=== PATIENT | male | born 1970 | race Caucasian/White ===

== ENCOUNTER 2025-02-10 08:18 | Day surgery (SDC) | payer OTHER, SELFPAY ==
[2025-02-10 08:48] VITALS: BMI 26.3
--- NOTE | 2025-02-10 11:03 | ITS.CL.CARDI ---
[employer] - Cardioversion
Cardioversion
Procedure Report:
Procedure: ALYSON-guided electrical cardioversion
Pre-operative diagnosis: Persistent atrial fibrillation
Post-operative diagnosis: Persistent atrial fibrillation status post DC cardioversion to sinus rhythm
Anesthesia: MAC
Attending Physician: Davey Wilkinson MD
Procedure Description: The patient was brought to the electrophysiology laboratory in the fasting state. Informed consent was obtained from the patient prior to the start of the procedure. Adherence to anticoagulation was confirmed. Electrodes were
placed on the patient and connected to an external defibrillator. Monitoring of blood pressure, ECG tracings, and pulse oximetry was initiated. The pads were applied to the patient in the anterior and posterior positions. The patient was sedated by
the anesthesiologist. A ALYSON (reported separately) was performed prior to the cardioversion. No left atrial or left atrial appendage thrombus was seen. After the ALYSON probe was removed, a 200 joule biphasic synchronized shock was delivered to the
patient under MAC anesthesia. Sinus rhythm was successfully restored. The patient recovered uneventfully from MAC anesthesia. There were no immediate post-procedure complications. The patient left the lab in good condition. The attending physician
was present throughout the entire procedure.
Impression: Successful ALYSON-guided direct current cardioversion with latter day of sinus rhythm after one 200 joule biphasic synchronized shock.
== END 2025-02-10 11:44 | disposition home or self-care (01) ==
LOC: CATH 08:18
PROVIDERS: ATTENDING PHYSICIAN Internal Medicine Cardiovascular Disease; FAMILY PHYSICIAN Internal Medicine; OTHER PHYSICIAN Internal Medicine Cardiovascular Disease
DX: I48.19 Other persistent atrial fibrillation (principal); I08.1 Rheumatic disorders of both mitral and tricuspid valves; Z79.01 Long term (current) use of anticoagulants; Z79.899 Other long term (current) drug therapy
CPT/HCPCS: 93312; 93320; 93325; 92960; 93005

== ENCOUNTER → 2025-04-23 14:19 | Outpatient (REF) | payer OTHER, SELFPAY | LOC: DHSLP 14:19 | PROVIDERS: ATTENDING PHYSICIAN Nurse Practitioner; FAMILY PHYSICIAN Internal Medicine | DX: G47.33 Obstructive sleep apnea (adult) (pediatric) (principal); R09.02 Hypoxemia | CPT/HCPCS: 95800 ==

== ENCOUNTER 2025-04-28 10:52 | Day surgery (SDC) | payer OTHER, SELFPAY ==
[2025-04-17 13:22] LABS: Hematocrit 44.1 % (39.0-52.0); Hemoglobin 15.0 g/dL (13.0-18.0); Mean Corp Hgb Conc. 34.0 g/dL (33.0-37.0); Mean Corpuscular Volume 86.3 fL (80.0-94.0); Nucleated Red Blood Cells % 0 % (-); Platelet Count 242 10^3/uL (130-400); Red Cell Dist. Width 13.0 % (11.5-14.5)
[2025-04-17 13:32] LABS: INR 1.05; PT 14.0 Sec (11.4-14.6)
[2025-04-17 13:49] LABS: ALT (SGPT) 23 U/L (0-50); AST (SGOT) 19 U/L (17-59); Albumin 4.3 g/dl (3.5-5.0); Alkaline Phosphatase 54 U/L (38-126); Blood Urea Nitrogen 19 mg/dl (9-20); Calcium 9.2 mg/dl (8.4-10.2); Carbon Dioxide 26 mmol/L (22-30); Chloride 108 mmol/L (98-107); Glucose 85 mg/dl (70-99); Magnesium 2.0 mg/dl (1.6-2.3); Potassium 4.6 mmol/L (3.5-5.1); Sodium 139 mmol/L (135-145); Total Protein 7.2 g/dl (6.3-8.2); eGFR > 60.00
[2025-04-20 09:48] VITALS: BMI 27.6
--- NOTE | 2025-04-20 15:18 | W.PN.UPDATE ---
Update Note
Progress Note Update
Chest CT 04/17/25:
1.8 cm nodule in the left lobe of the thyroid gland. Recommend a follow-up thyroid ultrasound.
--Dr Maximilian Olmedo and patient made aware
[2025-04-28] VITALS (14 sets, daily range): BP systolic 98–115; BP diastolic 62–84
[2025-04-28 13:25] LABS: ACT-LR - POC 256 Seconds (116-155)
[2025-04-28 13:49] LABS: ACT-LR - POC 297 Seconds (116-155)
--- NOTE | 2025-04-28 13:56 | ITS.CL.ABL ---
Insurance Healthcare Consultant - Ablation
Ablation
Procedure Report:
ELECTROPHYSIOLOGY ABLATION STUDY
DATE:: April 28, 2025�����������������������������REFERRING: Dr. Samuel Muhammad
INDICATION: Persistent supraventricular tachycardia in the form of atrial fibrillation.��As above
HISTORY: See H and P.��Also noted to have a thyroid nodule 1.8 cm discussed with patient he will have follow-up with his primary care physician
ANTIARRHYTHMIC DRUG: Metoprolol
PRE-PROCEDURE ALYSON: No atrial thrombus
PRESENTING RHYTHM: Atrial fibrillation
'TIME-OUT':��called and confirmed.
SEDATION/ANESTHESIA:��provided via the anesthesia department using general anesthesia (LMA).
INTRAVENOUS/ARTERIAL ACCESS:
Right femoral venous - 8Fr
Left femoral venous - 8 Fr, 6 Fr
Nhmdac-ta-[id number] suture bilaterally
Ultrasound guidance for bilateral femoral vein access was utilized by me to obtain access with demonstration of normal anatomy
CHADS-VASC Score:
HAS-Bled Score
PROCEDURE:
1.��A decapolar CS catheter was placed within the CS for mapping and pacing.��This was also used as the reference catheter for the 3-D map.
2. The intracardiac ultrasound catheter was positioned in the RA to identify the FO for targeting of transseptal puncture, assist��in identification of the pulmonary vein ostia, monitoring pre and post ablation pulmonary vein flow velocities,
monitoring for 'bubble' formation during RF application as a sign of thermal injury,��and to monitor for pericardial effusion during mapping and ablation procedure.���Left atrial size, LV ejection fraction, and pulmonary vein flows were monitored
pre and post ablation procedure. The other valves were inspected and found to be free of significant regurgitation or stenosis.
3.��Half of the calculated heparin bolus was administered prior to the first transeptal puncture.��Transseptal puncture was performed to diagnose RA and LA pressure so that safetey of LA mapping and ablation could be further assessed, and to access
the left atrium and pulmonary veins for mapping and ablation.��This entailed advancing an 16.8 Samoan RF wire, sheath with dilator into the superior vena cava and withdrawing both (monitoring intracardiac ultrasound, fluoroscopy and tip pressure)
with the tip oriented toward the atrial septum.��The fossa ovalis was engaged (indicated by sudden displacement of the sheath tip as well as tenting of the fossa seen on intracardiac ultrasound).��Left atrial access required a pass with the
Brockenbrough needle extended.��Left atrial catheter position was confirmed by pressure monitoring (RA mean pressure 8 mm Hg and LA mean presure 20 mm Hg post 22 mmHg), LA saturation (99%),��as well as fluoroscopy.��The sheath was advanced over the
dilator and positioned in the left atrium.����The remainder of the calculated heparin bolus was administered and heparin was
infused to maintain ACT at 300 -350 seconds throughout the case.
4.��RA pacing was performed via the proximal decapolar poles and LA pacing was performed via the distal decapolr poles.
5. A quadrapolar catheter was first positioned at the His position for His Bundle recording which was tagged via the 3-D Navex sytem, and then passed to the RVA for RV pacing and recording.
6. The Penta spline and grid catheter placed in each of the LIPV, LSPV, RSPV and the RIPV.��
7.��Next, a 3-D map was created using Navex.���A 3-D reconstructed CT image was compared to the 3-D Navex map to assist in anatomic interpretation, mapping and ablation.��The CT image and the NavX image were fused.
8. A total of 62 lesions were required to bring about entrance and exit block in all 4 pulmonary veins plus the posterior wall. With initial pass and all of in basket pose entrance block was achieved in all 4 pulmonary veins. Atrial fibrillation
persisted and in flower post roof posterior wall and floor of the left atrium were ablated with entrance block confirmed. With 3 mapping with the grid catheter there was focal reconnection at the left pulmonary vein aba and the posterior wall
aspect and additional olive basket and flower poses were delivered in this region with good result and entrance block in all 4 pulmonary veins plus the posterior wall. We then converted to sinus rhythm 1 200 J synchronized biphasic shock restored
sinus rhythm and entrance and exit block was confirmed in all 4 pulmonary veins and the roof posterior wall and floor of the left atrium.
9. Normal sinus 70 middle function noted.
TOTAL FLOURO TIME: 12.1 minutes 123 mGy
TOTAL RF DURATION: 0 minutes
REVERSAL OF HEPARIN: 35 mg of protamine, slow IV administration
COMPLICATIONS:
None
Intracardiac US shows no pericardial effusion post ablation.
SUMMARY:��
Complex left atrial mapping and ablation.
Isolation of all 4 pulmonary veins as well as the roof posterior wall and floor of the left atrium. Additional lesions in all the basket and flower pose were given to the posterior aba of the left veins due to acute reconnection and the
additional lesions brought about durable isolation.
RECOMMENDATIONS:
1. Ambulate in 4 hours
2. Resume anticoagulation
3.� Consider same-day discharge
4.��Outpatient thyroid ultrasound in 2 to 3 months
Copy to: Dr. Maximilian De Leon
[2025-04-28] MEDS: TYLENOL 650 MG PO (15:09)
[2025-04-28] MEDS: ZOFRAN 4 MG IV (15:09)
[2025-04-28] MEDS: BENADRYL 25 MG IV (15:16)
--- NOTE | 2025-04-28 15:18 | PTCARENOTE ---
Patient hemodynamically stable, nauseous after sips of water. Medicated with Zofran and Benadryl at this time. Cool compress on forehead. Groin care reinforced through extensive periods of coughing. Dressings remain intact fortunately.
--- NOTE | 2025-04-28 16:14 | W.PN.UPDATE ---
Update Note
Progress Note Update
54 yo WM s/p PVI (same day). He denies cp, sob, did have nausea which relieved with zofran and benadryl, EKG SR, b/l groins F08 intact, no HT. He will resume Eliquis tonight after 8pm and continue metoprolol. Activity restrictions reviewed. He will
f/u Dr. Busby in 3 mo. He is for d/c home after 650p if groins stable and voiding.
[2025-04-28] MEDS: ANESTHETIC LOZENGE 1 LOZENGE PO (17:42)
[2025-04-28] MEDS: MAALOX 30 ML PO (17:42)
== END 2025-04-28 18:52 | disposition home or self-care (01) ==
LOC: CATH 10:52
PROVIDERS: ATTENDING PHYSICIAN Internal Medicine Cardiovascular Disease; FAMILY PHYSICIAN Internal Medicine
DX: I48.19 Other persistent atrial fibrillation (principal); E78.5 Hyperlipidemia, unspecified; F32.A Depression, unspecified; F41.9 Anxiety disorder, unspecified; Z72.0 Tobacco use; Z79.01 Long term (current) use of anticoagulants; E04.1 Nontoxic single thyroid nodule; I47.10 Supraventricular tachycardia, unspecified; Z79.899 Other long term (current) drug therapy; Z91.048 Other nonmedicinal substance allergy status
CPT/HCPCS: C1732; C1894; C1769; C1892; C1759; 36415; 75572; 80053; 83735; 85025; 85347; 85610; 86850; 86900; 86901; 93005; 93656; 93657; C1730; C1733; C1766; Q9967

== ENCOUNTER 2025-07-14 06:51 | Day surgery (SDC) | payer OTHER, SELFPAY ==
--- NOTE | 2025-07-14 09:05 | ITS.CL.CARDI ---
[employer] Attendant - Cardioversion
Cardioversion
Procedure Report:
Date of Procedure: 07/14/25
Procedure: Cardioversion
Indication: Symptomatic atrial fibrillation
Performing Physician: Georges Muhammad MD
Technique: The patient was brought to the holding area. Signed informed consent was obtained. A time out was called and performed. The patient was anesthetized by the anesthesia service. Anticoagulation status was reviewed and appropriate. R2 pads
were placed anteriorly and posteriorly. A 200 J synchronized biphasic shock restored normal sinus rhythm without significant bradycardia. There were no complications.
Conclusion: Uncomplicated cardioversion from atrial fibrillation to sinus rhythm.
Recommendation: Routine post cardioversion care. Continue manager terminal anticoagulation.
== END 2025-07-14 08:50 | disposition home or self-care (01) ==
LOC: CATH 06:51
PROVIDERS: ATTENDING PHYSICIAN Internal Medicine Cardiovascular Disease; FAMILY PHYSICIAN Internal Medicine; OTHER PHYSICIAN Internal Medicine Cardiovascular Disease
DX: I48.0 Paroxysmal atrial fibrillation (principal); I48.91 Unspecified atrial fibrillation; Z79.01 Long term (current) use of anticoagulants; R06.09 Other forms of dyspnea; F41.9 Anxiety disorder, unspecified
CPT/HCPCS: 92960; 93005